=== PATIENT | male | born 1975 | race Caucasian/White ===

== ENCOUNTER 2018-07-18 07:59 | Emergency (ER) | payer MEDICAID, OTHER ==
[~2018-07-18] VITALS: Ht 167.6 cm; Wt 74.8 kg
--- OUTSIDE RECORDS SUMMARY | 2018-07-18 08:09 | XMS REPORT ---
Author Author DONYA ARROYO [facility] Address [address] [address] Phone Unavailable Care Team Providers Care Supervisor [employer] Name Role Phone DONYA ARROYO Unavailable Unavailable PROBLEMS Unknown Problems ALLERGIES Substance Reaction Event Type Date Status codiene Unknown Non Drug Allergy Jul, Active SOCIAL HISTORY No smoking Hx information available PLAN OF CARE Activity Details Follow Up robb Reason:SRP VITAL SIGNS Heart Rate 121 bpm 2016-08-03 Blood pressure systolic 124 mmHg 2016-08-03 Blood pressure diastolic 92 mmHg 2016-08-03 MEDICATIONS Medication Instructions Dosage Frequency Start Date End Date Duration Status BuSpar 15 MG Orally Twice a day 1 tablet 12h Active RESULTS No Results PROCEDURES Procedure Date Ordered Related Diagnosis Body Site COMP ORAL EVALUATION - NEW/EST PT Aug 03, 2016 INTRAORL-PERIAPICAL 1 FILM [id number] Aug 03, 2016 PANORAMIC FILM SEE ALSO CODE [id number] Aug 03, 2016 BITEWINGS - FOUR FILMS Aug 03, 2016 IMMUNIZATIONS No Known Immunizations
[2018-07-18 09:25] LABS: BASOPHILS % (AUTO) 0 % (0-10); EOSINOPHILS # (AUTO) 0.1 10^3/uL (0.0-0.3); EOSINOPHILS % (AUTO) 1 % (0-10); HEMATOCRIT 46 % (40-54); HEMOGLOBIN 15.6 G/DL (13.3-17.7); LYMPHOCYTES % (AUTO) 16 % (12-44); MEAN CORPUSCULAR HEMOGLOBIN 31 PG (25-34); MEAN CORPUSCULAR HGB CONC 34 G/DL (32-36); MEAN CORPUSCULAR VOLUME 93 FL (80-99); MEAN PLATELET VOLUME 9.9 FL (7.4-10.4); MONOCYTES # (AUTO) 1.9 X 10^3 (0.0-1.0); MONOCYTES % (AUTO) 16 % (0-12); NEUTROPHILS % (AUTO) 67 % (42-75); PLATELET COUNT 257 10^3/uL (130-400); RED BLOOD COUNT 4.98 10^6/uL (4.35-5.85); RED CELL DISTRIBUTION WIDTH 13.6 % (10.0-14.5)
[2018-07-18 09:42] LABS: ALANINE AMINOTRANSFERASE 26 U/L (0-55); ALBUMIN 4.4 GM/DL (3.2-4.5); ALKALINE PHOSPHATASE 84 U/L (40-136); BILIRUBIN,TOTAL 0.4 MG/DL (0.1-1.0); BUN/CREATININE RATIO 18; CALCIUM 9.8 MG/DL (8.5-10.1); CARBON DIOXIDE 26 MMOL/L (21-32); CHLORIDE 103 MMOL/L (98-107); CREATININE SERUM 0.83 MG/DL (0.60-1.30); GFR ESTIMATED > 60; GLUCOSE 106 MG/DL (70-105); POTASSIUM 4.5 MMOL/L (3.6-5.0); SODIUM 138 MMOL/L (135-145); TOTAL PROTEIN 7.4 GM/DL (6.4-8.2)
[2018-07-18] MEDS ORDERED: HYDROcodone/APAP 7.5 MG/325 MG (LORTAB, LORCET PLUS) TABLET PO STA (10:14)
[2018-07-18] MEDS ORDERED: KETOROLAC 30 MG/ML VIAL IVP STA (10:14)
[2018-07-18] MEDS ORDERED: DEXAMETHASONE 10 MG/ML (DECADRON) 1 ML VIAL IV ONE (10:15)
[2018-07-18] MEDS ORDERED: cefTRIAXone FOR IV USE 1,000 MG in NS (IVPB) 50 ML IV ONE (10:15)
--- NOTE | 2018-07-18 10:22 | ED EENT ---
History of Present Illness General Chief Complaint: Dental Problems/Pain Stated Complaint: TOOTH PAIN;SWELLING Nursing Triage Note: Pt has dental abcess on top L tooth. Facial swelling noted. Pt reports facial swelling started getting worse last night. Pain x2 days. Source: patient Exam Limitations: no limitations History of Present Illness Date Seen by Provider: Jul 18, 2018 Time Seen by Provider: 10:02 Initial Comments Here with report of left frontal dental pain and abscess with swelling on the face. Moderate facial swelling noted that started getting much worse last night. Pain is been going on for a few days. He has seen the dentist and has had 6 teeth cut out with 6 more cut out. The [facility] as referred him to our clinic in [place] that wants $6000 for the procedure with 80 percent upfront and he does not have the money for that. Denies nausea or vomiting. Denies breathing or swallowing problems. Timing/Duration: gradual Severity: moderate Location: mouth, facial, dental Prearrival Treatment: over the counter meds Associated Symptoms: No cough; facial pain/swelling; No fever, No sore throat; tooth pain; No voice change Allergies and Home Medications Allergies Coded Allergies: aspirin (Unverified Allergy, Unknown, 07/18/18) codeine (Unverified Allergy, Unknown, 07/18/18) Patient Home Medication List Home Medication List Reviewed: Yes Review of Systems Review of Systems Constitutional: see HPI; No chills, No fever Eyes: No Symptoms Reported Ears: No Symptoms Reported Nose: no symptoms reported Mouth: see HPI, pain, swelling; denies purulent discharge Throat: no symptoms reported Respiratory: no symptoms reported Cardiovascular: no symptoms reported Skin: see HPI, change in color, other (redness to the face moderate swelling left side of the face frontal from nose to cheek) Past Jtyjkwx-Oopxma-Tfrqxm Hx Past Med/Social Hx: Reviewed Nursing Past Med/Soc Hx Patient Social History Alcohol Use: Denies Use Recreational Drug Use: No Smoking Status: Current Everyday Smoker Type Used: Cigarettes Recent Foreign Travel: No Contact w/Someone Who Travel: No Recent Infectious Disease Expo: No Recent Hopitalizations: No Immunizations Up To Date Tetanus Booster (TDap): Less than 5yrs Seasonal Allergies Seasonal Allergies: No Past Medical History Surgeries: Yes Orthopedic Respiratory: Yes COPD Cardiac: No Neurological: No Genitourinary: No Gastrointestinal: No Musculoskeletal: No Endocrine: No HEENT: No Cancer: No Psychosocial: No Integumentary: No Blood Disorders: No Family Medical History Reviewed Nursing Family Hx Physical Exam Vital Signs Vital Signs - First Documented 07/18/18 08:25 Temp 97.8 Pulse 109 Resp 18 B/P (MAP) 119/89 (99) Pulse Ox 98 O2 Delivery Room Air Height, Weight, BMI Height: 5'6.00" Weight: 165lbs. oz. [id number]; BMI Method:Stated General Appearance: WD/WN, no apparent distress Nose: normal inspection; No active bleeding Mouth/Throat: pharynx normal, dental tenderness (, left frontal near tooth 9 through 12); No mandibular swelling; maxillary swelling; No pharynx swelling, No trismus, No uvula swelling Neck: full range of motion, supple Cardiovascular: regular rate, rhythm, no murmur Respiratory: lungs clear, normal breath sounds Gastrointestinal: non tender, soft Neurologic/Psychiatric: alert, oriented x 3 Skin: normal color, warm/dry, other (moderate erythema to the face on the left side frontal around area of swelling) Progress/Results/Core Measures Results/Orders Lab Results Laboratory Tests Test 07/18/18 09:10 Range/Units White Blood Count 12.0 H 4.3-11.0 10^3/uL Red Blood Count 4.98 4.35-5.85 10^6/uL Hemoglobin 15.6 13.3-17.7 G/DL Hematocrit 46 40-54 % Mean Corpuscular Volume 93 80-99 FL Mean Corpuscular Hemoglobin 31 25-34 PG Mean Corpuscular Hemoglobin Concent 34 32-36 G/DL Red Cell Distribution Width 13.6 10.0-14.5 % Platelet Count 257 130-400 10^3/uL Mean Platelet Volume 9.9 7.4-10.4 FL Neutrophils (%) (Auto) 67 42-75 % Lymphocytes (%) (Auto) 16 12-44 % Monocytes (%) (Auto) 16 H 0-12 % Eosinophils (%) (Auto) 1 0-10 % Basophils (%) (Auto) 0 0-10 % Neutrophils # (Auto) 8.0 H 1.8-7.8 X 10^3 Lymphocytes # (Auto) 2.0 1.0-4.0 X 10^3 Monocytes # (Auto) 1.9 H 0.0-1.0 X 10^3 Eosinophils # (Auto) 0.1 0.0-0.3 10^3/uL Basophils # (Auto) 0.0 0.0-0.1 10^3/uL Sodium Level 138 135-145 MMOL/L Potassium Level 4.5 3.6-5.0 MMOL/L Chloride Level 103 98-107 MMOL/L Carbon Dioxide Level 26 21-32 MMOL/L Anion Gap 9 5-14 MMOL/L Blood Urea Nitrogen 15 7-18 MG/DL Creatinine 0.83 0.60-1.30 MG/DL Estimat Glomerular Filtration Rate > 60 BUN/Creatinine Ratio 18 Glucose Level 106 H 70-105 MG/DL Calcium Level 9.8 8.5-10.1 MG/DL Corrected Calcium 9.5 8.5-10.1 MG/DL Total Bilirubin 0.4 0.1-1.0 MG/DL Aspartate Amino Transf (AST/SGOT) 25 5-34 U/L Alanine Aminotransferase (ALT/SGPT) 26 0-55 U/L Alkaline Phosphatase 84 40-136 U/L C-Reactive Protein High Sensitivity 4.30 H 0.00-0.50 MG/DL Total Protein 7.4 6.4-8.2 GM/DL Albumin 4.4 3.2-4.5 GM/DL My Orders Orders - NATIVIDAD SILVER MD Cbc With Automated Diff (07/18/18 09:01) Comprehensive Metabolic Panel (07/18/18 09:01) Hs C Reactive Protein (07/18/18 09:01) Saline Lock/Iv-Start (07/18/18 09:01) Hydrocodone/Apap 7.5/325 Tab (Lortab 7. (07/18/18 10:14) Ketorolac Injection (Toradol Injection) (07/18/18 10:14) Rocephin 1g/Ns Iv (07/18/18 10:15) Dexamethasone Injection (Decadron Inject (07/18/18 10:15) Vital Signs/I&O 07/18/18 08:25 Temp 97.8 Pulse 109 Resp 18 B/P (MAP) 119/89 (99) Pulse Ox 98 O2 Delivery Room Air Blood Pressure Mean: 99 Progress Progress Note : Progress Note Seen and evaluated. IV and labs ordered. Due to moderate swelling and location we will go ahead and give Rocephin 1 g IV especially in light of swelling and erythema to the frontal face. The nose and eye. Hydrocodone 7.5 mg by mouth. Toradol 30 mg IV. Labs reviewed and he does have elevation of white count which is another indication for IV antibiotics at least on the first dose. We will continue outpatient antibiotics. Discharged home with return precautions. Patient verbalize understanding instructions and agreement with plan. Departure Impression Primary Impression: Dental abscess Additional Impression: Facial cellulitis Disposition: HOME, SELF-CARE Condition: Improved Departure-Patient Inst. Decision time for Depature: 10:23 Referrals: [facility] Patient Instructions: Cellulitis (Skin Infection), Adult (DC), Tooth Abscess ( DC) Add. Discharge Instructions: All discharge instructions reviewed with patient and/or family. Voiced understanding. Take antibiotics as directed. Follow-up with your DrMerced this week for recheck and further evaluation. Follow-up with a dentist YOBANI. You may take ibuprofen 600 mg every 8 hours as needed for pain as well as prescribed pain medicine. Return for worsening, fever, vomiting, weakness, breathing problems, swallowing problems or other concerns as needed. Scripts Hydrocodone Bit/Acetaminophen (Hydrocodone/Acetaminophen 5/325mg Tablet) 1 Tab Tab 1-2 EACH PO Q6H PRN for PAIN-MODERATE MDD 10, #20 TAB 0 Refills Prov: NATIVIDAD SILVER MD 07/18/18 Clindamycin HCl (Clindamycin HCl) 300 Mg Capsule 300 MG PO Q6H, #28 CAP 0 Refills Prov: NATIVIDAD SILVER MD 07/18/18 NATIVIDAD SILVER MD Jul 18, 2018 10:22
[2018-07-18] MEDS ORDERED: CLIN300C11 PO (10:30)
[2018-07-18] MEDS ORDERED: ACHD5005 PO (10:30)
[2018-07-18 10:52] VITALS: BP 119/89
== END 2018-07-18 10:53 | disposition home or self-care (01) ==
LOC: ER 08:01
DX: K04.7 Periapical abscess without sinus (principal); L03.211 Cellulitis of face; J44.9 Chronic obstructive pulmonary disease, unspecified; F17.210 Nicotine dependence, cigarettes, uncomplicated; Z88.6 Allergy status to analgesic agent; Z88.5 Allergy status to narcotic agent
CPT/HCPCS: 36415; 80053; 85025; 86141; 96365; 96375

== ENCOUNTER 2018-07-20 11:05 | Emergency (ER) | payer MEDICAID ==
[~2018-07-20 11:05] MED LIST: ACHD5005 PO; CLIN300C11 PO
== END 2018-07-20 11:47 | disposition left against medical advice (07) ==
LOC: EDUNIT# 11:05 → ER 11:06
DX: K04.7 Periapical abscess without sinus (principal)

== ENCOUNTER 2019-01-28 22:35 | Emergency (ER) | payer MEDICAID ==
[~2019-01-28] VITALS: Ht 167.6 cm; Wt 70.3 kg
--- OUTSIDE RECORDS SUMMARY | 2019-01-28 22:40 | XMS REPORT | Continuity of Care Document ---
Author Organization Unknown Address Unknown Allergies There is no data. Medications There is no data. Problems There is no data. Procedures There is no data. Results There is no data. Encounters ACCT No. Visit Date/Time Discharge Status Pt. Type Provider Facility Loc./Unit Complaint [id number] 12/02/2018 10:40:00 12/02/2018 23:59:59 CLS Outpatient SELF, CHIRAG Hearn [facility]
--- NOTE | 2019-01-28 22:51 | ED Lower Extremity ---
General Chief Complaint: Lower Extremity Stated Complaint: LT ANKLE PAIN Nursing Triage Note: Patient states he was taking his sock off his left ankle and felt it pop. It began swelling shortly after it popped. Patient states he has had reconstructive surgery on this left ankle in 2013 with post op complications. Nursing Sepsis Screen: No Definite Risk Source: patient, RN notes reviewed Exam Limitations: no limitations History of Present Illness Date Seen by Provider: Jan 28, 2019 Time Seen by Provider: 22:51 Allergies and Home Medications Allergies Coded Allergies: aspirin (Unverified Allergy, Unknown, 07/18/18) codeine (Unverified Allergy, Unknown, 07/18/18) Home Medications Clindamycin HCl 300 Mg Capsule, 300 MG PO Q6H Prescribed by: NATIVIDAD SILVER on 07/18/18 1030 Hydrocodone Bit/Acetaminophen 1 Tab Tab, 1-2 EACH PO Q6H PRN for PAIN-MODERATE Prescribed by: NATIVIDAD SILVER on 07/18/18 1030 Past Aedesyr-Ppvdna-Xmdkxp Hx Patient Social History Alcohol Use: Denies Use Recreational Drug Use: No Smoking Status: Current Everyday Smoker Type Used: Cigarettes Recent Foreign Travel: No Contact w/Someone Who Travel: No Recent Infectious Disease Expo: No Recent Hopitalizations: No Physical Abuse: No Sexual Abuse: No Mistreated: No Fear: No Immunizations Up To Date Tetanus Booster (TDap): Less than 5yrs Seasonal Allergies Seasonal Allergies: No Past Medical History Surgeries: Yes Orthopedic Respiratory: Yes COPD Cardiac: No Neurological: No Genitourinary: No Gastrointestinal: No Musculoskeletal: No Endocrine: No HEENT: No Cancer: No Psychosocial: No Integumentary: No Blood Disorders: No Physical Exam Vital Signs Vital Signs - First Documented 01/28/19 22:37 Temp 98.8 Pulse 111 Resp 18 B/P (MAP) 130/94 (106) Pulse Ox 97 O2 Delivery Room Air Capillary Refill : Less Than 3 Seconds Height, Weight, BMI Height: 5'6.00" Weight: 155lbs. 0oz. 70.266048kc; BMI Method:Stated Progress/Results/Core Measures Results/Orders My Orders Orders - EDI COMBS DO Ankle 3 View Left (01/28/19 22:52) Vital Signs/I&O 01/28/19 22:37 Temp 98.8 Pulse 111 Resp 18 B/P (MAP) 130/94 (106) Pulse Ox 97 O2 Delivery Room Air Blood Pressure Mean: 106 Departure Impression Primary Impression: Left ankle swelling Additional Impression: Previous ORIF left ankle Disposition: 01 HOME, SELF-CARE Condition: Stable Departure-Patient Inst. Decision time for Depature: 23:10 Referrals: SELFCHIRAG MD (PCP/Family) Primary Care Physician Patient Instructions: Ankle Sprain (DC) Add. Discharge Instructions: All discharge instructions reviewed with patient and/or family. Voiced understanding. RECOMMEND 1000 mg OF TYLENOL EVERY 6 HOURS NEEDED FOR ANY PAIN. DO NOT EXCEED 4000 mg OF TYLENOL IN A 24 HOUR PERIOD. RECOMMEND FOLLOW UP WITH AN ORTHOPEDIC SURGEON OF CHOICE. EDI COMBS DO Jan 28, 2019 22:51
[2019-01-28 23:15] VITALS: BP 130/94
--- NOTE | 2019-01-31 14:03 | Diagnostic Imaging Report ---
Indication: Fracture. Three views were obtained. Findings: There has been open reduction and internal fixation of distal tibial fracture with plate and screws. The plafonds and talar dome are intact. Ankle mortise is symmetric. No fracture or dislocation. Soft tissues are unremarkable. Impression: Stable postsurgical changes in the distal fibula otherwise unremarkable. Dictated by: Dictated on workstation # [id number]
== END 2019-01-28 23:15 | disposition home or self-care (01) ==
LOC: EDUNIT# 22:35 → ER FS 22:37
DX: M25.472 Effusion, left ankle (principal); J44.9 Chronic obstructive pulmonary disease, unspecified; F17.210 Nicotine dependence, cigarettes, uncomplicated; Z88.6 Allergy status to analgesic agent; Z88.5 Allergy status to narcotic agent; Z87.81 Personal history of (healed) traumatic fracture; X50.1XXA Overexertion from prolonged static or awkward postures, initial encounter

== ENCOUNTER 2019-05-15 15:52 | Emergency (ER) | payer MEDICAID ==
[~2019-05-15] VITALS: Ht 167 cm; Wt 75.0 kg
[2019-05-15] MEDS ORDERED: NS 100 ML (IVPB) BAG IV ONE (16:15)
[2019-05-15] MEDS ORDERED: CATHETER FLUSH 10 ML SYR IV PRN (16:15)
[2019-05-15] MEDS ORDERED: IOHEXOL 350 MG/ML 100 ML (OMNIPAQUE 350) VIAL IV ONE (16:15)
[2019-05-15] MEDS ORDERED: KETOROLAC 30 MG/ML VIAL IVP ONE (16:15)
[2019-05-15] MEDS ORDERED: HOLD METFORMIN - RECEIVED CONTRAST 20 ML VIAL IV SCH (16:15)
[2019-05-15] MEDS ORDERED: NS IV 1000 ML 1,000 ML IV SCH (16:15)
--- NOTE | 2019-05-15 16:16 | ED Abdominal Pain ---
General Stated Complaint: FLANK PAIN Source of Information: Patient Exam Limitations: No Limitations History of Present Illness Date Seen by Provider: May 15, 2019 Time Seen by Provider: 16:00 Initial Comments The patient is a 44-year-old male presents for evaluation of left lower quadrant abdominal pain. He arrives via EMS. He states it started earlier today. He denies fevers or chills, urinary complaints, back or flank pain, chest pain or shortness of breath, rectal pain or bleeding, nausea or vomiting. He is alert and oriented 4, calm, and appears to be in no distress. He denies having a similar pain previously. Allergies and Home Medications Allergies Coded Allergies: aspirin (Unverified Allergy, Unknown, 07/18/18) codeine (Unverified Allergy, Unknown, 07/18/18) Home Medications Clindamycin HCl 300 Mg Capsule, 300 MG PO Q6H Prescribed by: NATIVIDAD SILVER on 07/18/18 1030 Hydrocodone Bit/Acetaminophen 1 Tab Tab, 1-2 EACH PO Q6H PRN for PAIN-MODERATE Prescribed by: NATIVIDAD SILVER on 07/18/18 1030 Patient Home Medication List Home Medication List Reviewed: Yes Review of Systems Review of Systems Constitutional: no symptoms reported EENTM: No Symptoms Reported Respiratory: No Symptoms Reported Cardiovascular: No Symptoms Reported Gastrointestinal: Abdominal Pain Genitourinary: No Symptoms Reported Musculoskeletal: no symptoms reported Skin: no symptoms reported Psychiatric/Neurological: No Symptoms Reported Endocrine: No Symptoms Reported Hematologic/Lymphatic: No Symptoms Reported All Other Systems Reviewed Negative Unless Noted: Yes Past Ehgeben-Ysbllr-Aoykkx Hx Past Med/Social Hx: Reviewed Nursing Past Med/Soc Hx Patient Social History Type Used: Cigarettes Recent Foreign Travel: No Contact w/Someone Who Travel: No Recent Hopitalizations: No Immunizations Up To Date Tetanus Booster (TDap): Less than 5yrs Seasonal Allergies Seasonal Allergies: No Past Medical History Surgeries: Yes Orthopedic Respiratory: Yes COPD Cardiac: No Neurological: No Genitourinary: No Gastrointestinal: No Musculoskeletal: No Endocrine: No HEENT: No Cancer: No Psychosocial: No Integumentary: No Blood Disorders: No Physical Exam Vital Signs Vital Signs - First Documented 05/15/19 15:55 Temp 36.4 Pulse 67 Resp 22 B/P (MAP) 179/108 (131) Pulse Ox 98 Capillary Refill : Height/Weight/BMI Height: 5'6.00" Weight: 155lbs. 0oz. 70.728493ua; BMI Method:Stated General Appearance: WD/WN, no apparent distress HEENT: PERRL/EOMI, pharynx normal Neck: non-tender, full range of motion, supple, normal inspection Respiratory: chest non-tender, lungs clear, normal breath sounds, no respiratory distress, no accessory muscle use Cardiovascular: regular rate, rhythm, no edema, no JVD Gastrointestinal: normal bowel sounds, non tender, soft Extremities: normal range of motion, no pedal edema Neurologic/Psychiatric: four slide operator II-XII nml as tested, no motor/sensory deficits, alert, normal mood/affect, oriented x 3 Skin: normal color, warm/dry Progress/Results/Core Measures Results/Orders Lab Results Laboratory Tests Test 05/15/19 16:20 05/15/19 17:17 Range/Units White Blood Count 11.8 H 4.3-11.0 10^3/uL Red Blood Count 4.45 4.35-5.85 10^6/uL Hemoglobin 13.9 13.3-17.7 G/DL Hematocrit 42 40-54 % Mean Corpuscular Volume 95 80-99 FL Mean Corpuscular Hemoglobin 31 25-34 PG Mean Corpuscular Hemoglobin Concent 33 32-36 G/DL Red Cell Distribution Width 13.4 10.0-14.5 % Platelet Count 303 130-400 10^3/uL Mean Platelet Volume 9.3 7.4-10.4 FL Neutrophils (%) (Auto) 66 42-75 % Lymphocytes (%) (Auto) 23 12-44 % Monocytes (%) (Auto) 9 0-12 % Eosinophils (%) (Auto) 1 0-10 % Basophils (%) (Auto) 1 0-10 % Neutrophils # (Auto) 7.8 1.8-7.8 X 10^3 Lymphocytes # (Auto) 2.8 1.0-4.0 X 10^3 Monocytes # (Auto) 1.0 0.0-1.0 X 10^3 Eosinophils # (Auto) 0.2 0.0-0.3 10^3/uL Basophils # (Auto) 0.1 0.0-0.1 10^3/uL Sodium Level 143 135-145 MMOL/L Potassium Level 4.3 3.6-5.0 MMOL/L Chloride Level 106 98-107 MMOL/L Carbon Dioxide Level 27 21-32 MMOL/L Anion Gap 10 5-14 MMOL/L Blood Urea Nitrogen 18 7-18 MG/DL Creatinine 1.01 0.60-1.30 MG/DL Estimat Glomerular Filtration Rate > 60 BUN/Creatinine Ratio 18 Glucose Level 111 H 70-105 MG/DL Calcium Level 9.4 8.5-10.1 MG/DL Corrected Calcium 9.3 8.5-10.1 MG/DL Total Bilirubin 0.2 0.1-1.0 MG/DL Aspartate Amino Transf (AST/SGOT) 17 5-34 U/L Alanine Aminotransferase (ALT/SGPT) 11 0-55 U/L Alkaline Phosphatase 73 40-136 U/L Total Protein 6.7 6.4-8.2 GM/DL Albumin 4.1 3.2-4.5 GM/DL Amylase Level 82 25-125 U/L Lipase 65 8-78 U/L Serum Alcohol < 10 <10 MG/DL Urine Color YELLOW Urine Clarity CLEAR Urine pH 7.0 5-9 Urine Specific [place] 1.015 L 1.016-1.022 Urine Protein NEGATIVE NEGATIVE Urine Glucose (UA) NEGATIVE NEGATIVE Urine Ketones NEGATIVE NEGATIVE Urine Nitrite NEGATIVE NEGATIVE Urine Bilirubin NEGATIVE NEGATIVE Urine Urobilinogen 0.2 NORMAL MG/DL Urine Leukocyte Esterase NEGATIVE NEGATIVE Urine RBC (Auto) 1+ H NEGATIVE Urine RBC 10-25 H /HPF Urine WBC 0-2 /HPF Urine Squamous Epithelial Cells 0-2 /HPF Urine Crystals NONE /LPF Urine Bacteria NEGATIVE /HPF Urine Casts NONE /LPF Urine Mucus NEGATIVE /LPF Urine Culture Indicated NO My Orders Orders - SPEEDY MARCIAL DO Comprehensive Metabolic Panel (05/15/19 16:02) Lipase (05/15/19 16:02) Amylase (05/15/19 16:02) Ua Culture If Indicated (05/15/19 16:02) Ed Iv/Invasive Line Start (05/15/19 16:02) Cbc With Automated Diff (05/15/19 16:02) Ct Abdomen/Pelvis W (05/15/19 16:02) Ns Iv 1000 Ml (Sodium Chloride 0.9%) (05/15/19 16:15) Alcohol (05/15/19 16:02) Ketorolac Injection (Toradol Injection) (05/15/19 16:15) Iohexol Injection (Omnipaque 350 Mg/Ml 1 (05/15/19 16:15) Received Contrast (Hold Metformin- Contr (05/15/19 16:15) Sodium Chloride Flush (Catheter Flush Sy (05/15/19 16:15) Ns (Ivpb) (Sodium Chloride 0.9% Ivpb Bag (05/15/19 16:15) Morphine Injection (Morphine Injection (05/15/19 17:15) Medications Given in ED Current Medications Medications Dose Ordered Sig/Anatoly Route Start Time Stop Time Status Last Admin Dose Admin Iohexol 100 ml ONCE ONCE IV 05/15/19 16:15 05/15/19 16:16 DC 05/15/19 17:17 100 ML Ketorolac Tromethamine 30 mg ONCE ONCE IVP 05/15/19 16:15 05/15/19 16:16 DC 05/15/19 16:24 30 MG Sodium Chloride 10 ml NEEDED PRN IV 05/15/19 16:15 05/15/19 17:17 10 ML Sodium Chloride 100 ml ONCE ONCE IV 05/15/19 16:15 05/15/19 16:16 DC 05/15/19 17:17 80 ML Vital Signs/I&O 05/15/19 15:55 Temp 36.4 Pulse 67 Resp 22 B/P (MAP) 179/108 (131) Pulse Ox 98 Progress Progress Note : Progress Note @1740 - Pt has a possible urologic mass and will need to f/u with urology. Dr. Mora called and voicemail left. @1752 - Patient updated on all lab and imaging results. Case was discussed with Dr. Mora. Dr. Mora will like the patient to contact his office tomorrow to be seen and states that he will perform a cystoscopy to make sure this is not a concerning lesion. The patient expresses verbal understanding and agreement with this plan. He will go home with pain medication as well as nausea medication. He states he is feeling better but is still having some mild discomfort. No indication for admission at this time. Consults : Consults Notes [facility]. [place], [place] NAME: LISANDRO ROA MED REC#: [id number] PT STATUS: REG ER : 1975 PHYSICIAN: SPEEDY MARCIAL DO ADMIT DATE: 05/15/19/ER FS Draft Date of Exam:05/15/19 CT ABDOMEN/PELVIS W PROCEDURE: CT abdomen and pelvis with contrast. TECHNIQUE: Multiple contiguous axial images were obtained through the abdomen and pelvis after administration of intravenous contrast. Auto Exposure Controls were utilized during the CT exam to meet ALARA standards for radiation dose reduction. DATE: May 15, 2019. COMPARISON: None. INDICATION: 44-year-old male, left-sided abdominal pain. FINDINGS: The visualized portions of the lung bases are clear. The heart is not enlarged. There is no identified pericardial effusion. The liver is normal in size and contour. There is no identified liver lesion. The gallbladder is unremarkable. There is no intrahepatic or extrahepatic bile duct dilation. The main pancreatic duct is not abnormally dilated. Unremarkable appearance of the pancreatic parenchyma. The spleen is normal in size. The adrenal glands are unremarkable. There is a 5 mm low-attenuation lesion in the right kidney on axial image 26 which measures 5 mm in size. This is too small to characterize. There is a stone in the region of the left ureterovesical junction which is projecting within the urinary bladder on axial image 76. There is abnormal soft tissue prominence in this region perhaps best illustrated on delayed axial image 77 and adjacent sequential images. This does question potentially neoplastic process at this level. There is mild left hydroureteronephrosis. The right urinary collecting system is not abnormally dilated. There is no right renal or ureteral stone. There is asymmetric clearance of contrast from the renal parenchyma with the delay on the left. There is mild wall thickening of the rectum and distal sigmoid. There is diverticulosis without evidence of acute diverticulitis. The appendix is normal. There is moderate distention of the stomach. The additional segments of the intestinal tract are not distended. There is no free intraperitoneal air. There is no drainable fluid collection. There is no free pelvic fluid. There are atherosclerotic calcifications. There is no identified abnormally enlarged lymph node in the abdomen or pelvis which meets CT size criteria for adenopathy. There are mild degenerative changes of the spine. IMPRESSION: CT ABDOMEN AND PELVIS. 1. The stone in the region of the left ureterovesical junction which is projecting within the urinary bladder lumen. There is abnormal soft tissue attenuation in the region of the ureterovesical junction which does raise concern for potential neoplasm at this site. Further evaluation with cystoscopy is recommended. There is mild left hydroureteronephrosis as well as delay in clearance of contrast from the left kidney compared to the right. 2. Abnormal wall thickening at the level of the rectosigmoid colon. 3. Moderate distention of the stomach. Dictated on workstation # [id number] Dict: 05/15/19 1719 Trans: 05/15/19 173 [facility] [id number] Interpreted by: VIRGILIO CAO MD Electronically signed by: Departure Impression Primary Impression: Ureteral calculus, left Additional Impression: Abnormal CT scan, bladder Disposition: 01 HOME, SELF-CARE Condition: Stable Departure-Patient Inst. Decision time for Depature: 17:55 Referrals: YULIANA MORA MD Patient Instructions: Kidney Stones (DC) Add. Discharge Instructions: It is very important that you follow up with Dr. Mora in his office tomorrow as he will be expecting you. He is planning to perform a cystoscopy where he looks inside your bladder to make sure there is no concerning lesion. Take the prescribed medications as directed, as needed. Return to the emergency Department immediately for new or worsening symptoms. Scripts Ondansetron (Ondansetron Odt) 4 Mg Tab.rapdis 4 MG PO Q6H, #20 TAB Prov: SPEEDY MARCIAL DO 05/15/19 Tamsulosin HCl (Flomax) 0.4 Mg Cap 0.4 MG PO DAILY for 5 Days, #5 CAP Prov: SPEEDY MARCIAL DO 05/15/19 Hydrocodone/Acetaminophen (Clare 7.5-325 Tablet) 1 Each Tablet 1 TAB PO Q4H for PAIN-MODERATE MDD 6 TABS for 7 Days, #20 TAB Prov: SPEEDY MARCIAL DO 05/15/19 SPEEDY MARCIAL DO May 15, 2019 16:16
[2019-05-15 16:40] LABS: BASOPHILS # (AUTO) 0.1 10^3/uL (0.0-0.1); BASOPHILS % (AUTO) 1 % (0-10); EOSINOPHILS # (AUTO) 0.2 10^3/uL (0.0-0.3); EOSINOPHILS % (AUTO) 1 % (0-10); HEMATOCRIT 42 % (40-54); HEMOGLOBIN 13.9 G/DL (13.3-17.7); LYMPHOCYTES # (AUTO) 2.8 X 10^3 (1.0-4.0); LYMPHOCYTES % (AUTO) 23 % (12-44); MEAN CORPUSCULAR HEMOGLOBIN 31 PG (25-34); MEAN CORPUSCULAR HGB CONC 33 G/DL (32-36); MEAN CORPUSCULAR VOLUME 95 FL (80-99); MEAN PLATELET VOLUME 9.3 FL (7.4-10.4); MONOCYTES % (AUTO) 9 % (0-12); NEUTROPHILS # (AUTO) 7.8 X 10^3 (1.8-7.8); NEUTROPHILS % (AUTO) 66 % (42-75); PLATELET COUNT 303 10^3/uL (130-400); RED CELL DISTRIBUTION WIDTH 13.4 % (10.0-14.5); WHITE BLOOD COUNT 11.8 10^3/uL (4.3-11.0)
[2019-05-15 16:53] LABS: SODIUM 143 MMOL/L (135-145)
[2019-05-15 16:54] LABS: ALANINE AMINOTRANSFERASE 11 U/L (0-55); ALBUMIN 4.1 GM/DL (3.2-4.5); ALKALINE PHOSPHATASE 73 U/L (40-136); BILIRUBIN,TOTAL 0.2 MG/DL (0.1-1.0); BUN/CREATININE RATIO 18; CALCIUM 9.4 MG/DL (8.5-10.1); CARBON DIOXIDE 27 MMOL/L (21-32); CHLORIDE 106 MMOL/L (98-107); CREATININE SERUM 1.01 MG/DL (0.60-1.30); GFR ESTIMATED > 60; GLUCOSE 111 MG/DL (70-105); POTASSIUM 4.3 MMOL/L (3.6-5.0); TOTAL PROTEIN 6.7 GM/DL (6.4-8.2)
[2019-05-15 16:55] LABS: AMYLASE 82 U/L (25-125); LIPASE 65 U/L (8-78)
[2019-05-15] MEDS ORDERED: morphine INJ 10 MG/ML 1ML (SYR OR VIAL) IVP STA (17:15)
[2019-05-15 17:29] LABS: BACTERIA,URINE NEGATIVE /HPF; BILIRUBIN,URINE NEGATIVE (NEGATIVE); CLARITY,URINE CLEAR; COLOR,URINE YELLOW; GLUCOSE, URINE (UA) NEGATIVE (NEGATIVE); KETONES,URINE NEGATIVE (NEGATIVE); LEUKOCYTE ESTERASE ,URINE NEGATIVE (NEGATIVE); NITRITE,URINE NEGATIVE (NEGATIVE); PROTEIN,URINE NEGATIVE (NEGATIVE); SQUAMOUS EPITHELIAL CELL,UR 0-2 /HPF; UROBILINOGEN,URINE 0.2 MG/DL (NORMAL); WBC,URINE 0-2 /HPF
--- NOTE | 2019-05-15 17:33 | Diagnostic Imaging Report ---
PROCEDURE: CT abdomen and pelvis with contrast. TECHNIQUE: Multiple contiguous axial images were obtained through the abdomen and pelvis after administration of intravenous contrast. Auto Exposure Controls were utilized during the CT exam to meet ALARA standards for radiation dose reduction. DATE: May 15, 2019. COMPARISON: None. INDICATION: 44-year-old male, left-sided abdominal pain. FINDINGS: The visualized portions of the lung bases are clear. The heart is not enlarged. There is no identified pericardial effusion. The liver is normal in size and contour. There is no identified liver lesion. The gallbladder is unremarkable. There is no intrahepatic or extrahepatic bile duct dilation. The main pancreatic duct is not abnormally dilated. Unremarkable appearance of the pancreatic parenchyma. The spleen is normal in size. The adrenal glands are unremarkable. There is a 5 mm low-attenuation lesion in the right kidney on axial image 26 which measures 5 mm in size. This is too small to characterize. There is a stone in the region of the left ureterovesical junction which is projecting within the urinary bladder on axial image 76. There is abnormal soft tissue prominence in this region perhaps best illustrated on delayed axial image 77 and adjacent sequential images. This does question potentially neoplastic process at this level. There is mild left hydroureteronephrosis. The right urinary collecting system is not abnormally dilated. There is no right renal or ureteral stone. There is asymmetric clearance of contrast from the renal parenchyma with the delay on the left. There is mild wall thickening of the rectum and distal sigmoid. There is diverticulosis without evidence of acute diverticulitis. The appendix is normal. There is moderate distention of the stomach. The additional segments of the intestinal tract are not distended. There is no free intraperitoneal air. There is no drainable fluid collection. There is no free pelvic fluid. There are atherosclerotic calcifications. There is no identified abnormally enlarged lymph node in the abdomen or pelvis which meets CT size criteria for adenopathy. There are mild degenerative changes of the spine. IMPRESSION: CT ABDOMEN AND PELVIS. 1. Stone in the region of the left ureterovesical junction which is projecting within the urinary bladder lumen. There is abnormal soft tissue attenuation in the region of the ureterovesical junction which does raise concern for potential neoplasm at this site. Further evaluation with cystoscopy is recommended. There is mild left hydroureteronephrosis as well as delay in clearance of contrast from the left kidney compared to the right. 2. Abnormal wall thickening at the level of the rectosigmoid colon. 3. Moderate distention of the stomach. Dictated by: Dictated on workstation # [id number]
[2019-05-15] MEDS ORDERED: ONDA4TAB11 PO (17:59)
[2019-05-15] MEDS ORDERED: HYDR-4227 PO (17:59)
[2019-05-15] MEDS ORDERED: TAMS0.4C98 PO (17:59)
[2019-05-15 18:13] VITALS: BP 160/100
== END 2019-05-15 18:15 | disposition home or self-care (01) ==
LOC: EDUNIT# 15:52 → ER FS 15:53
DX: N13.2 Hydronephrosis with renal and ureteral calculous obstruction (principal); R93.41 Abnormal radiologic findings on diagnostic imaging of renal pelvis, ureter, or bladder; J44.9 Chronic obstructive pulmonary disease, unspecified; Z88.6 Allergy status to analgesic agent; Z88.5 Allergy status to narcotic agent
CPT/HCPCS: 36415; 74177; 80053; 80320; 81000; 82150; 83690; 85025; 96361; 96374; 96375

== ENCOUNTER → 2019-05-19 | Outpatient (CLI) | payer MEDICAID ==
[~2019-05-19] MED LIST changes: +HYDR-4227 PO; +ONDA4TAB11 PO; +TAMS0.4C98 PO
--- NOTE | 2019-05-19 15:57 | Diagnostic Imaging Report ---
INDICATION: Left lower quadrant abdominal pain. EXAMINATION: KUB at 2:50 PM. FINDINGS: The lung bases are clear. The bowel gas pattern is normal. There is a moderate amount of stool in the ascending colon. There may be a tiny calculus projecting over the left kidney. IMPRESSION: Questionable left nephrolithiasis. Dictated by: Dictated on workstation # [id number]
== END ==
LOC: RAD 14:28
PROVIDERS: ATTEND Urology
DX: R10.32 Left lower quadrant pain (principal)
CPT/HCPCS: 74018

== ENCOUNTER 2019-05-26 05:59 | Outpatient (CLI) | payer MEDICAID ==
[~2019-05-26] VITALS: Ht 167 cm; Wt 75.0 kg
[~2019-05-26 05:59] MED LIST changes: -TAMS0.4C98 PO; +TMSL.4C PO
[2019-05-26] MEDS ORDERED: VENL150C PO (12:27)
== END 2019-05-26 13:49 | disposition home or self-care (01) ==
LOC: PREOP 05:59
PROVIDERS: ATTEND Urology
DX: Z01.818 Encounter for other preprocedural examination (principal)

== ENCOUNTER 2019-05-27 06:25 | Day surgery (SDC) | payer MEDICAID ==
[2019-05-27] VITALS (9 sets, daily range): BP systolic 105–130; BP diastolic 72–91
[~2019-05-27] VITALS: Ht 167 cm; Wt 75.0 kg
[~2019-05-27 06:25] MED LIST changes: +TAMS0.4C98 PO; -TMSL.4C PO; +VENL150C PO
[2019-05-27] MEDS ORDERED: LACTATED RINGERS 1,000 ML IV PRN (06:32)
[2019-05-27] MEDS ORDERED: cefTRIAXone FOR IV USE 1,000 MG in WATER (STERILE) FOR INJECTION 10 ML IV ONE (06:45)
[2019-05-27] MEDS ORDERED: CATHETER FLUSH 10 ML SYR IV PRN (07:00)
[2019-05-27] MEDS ORDERED: DEXAMETHASONE 10 MG/ML (DECADRON) 1 ML VIAL ONE (07:04)
[2019-05-27] MEDS ORDERED: MIDAZOLAM 2 MG/2 ML (VERSED) VIAL ONE (07:04)
[2019-05-27] MEDS ORDERED: ONDANSETRON 4 MG/2 ML (SDV) Z0FRAN ONE (07:04)
[2019-05-27] MEDS ORDERED: LIDOCAINE PF 2% 5 ML (XYLOCAINE) VIAL ONE (07:04)
[2019-05-27] MEDS ORDERED: FUROSEMIDE 40 MG/4 ML INJ (LASIX) ONE (07:04)
[2019-05-27] MEDS ORDERED: SEVOFLURANE (ULTANE) 15 ML INHAL SOLN ONE ×3 (07:04→08:27)
[2019-05-27] MEDS ORDERED: fentaNYL INJECTION 100 MCG/2 ML AMP ONE ×2 (07:04→08:23)
[2019-05-27] MEDS ORDERED: proPOfol 200 MG/20 ML (DIPRIVAN) VIAL IV ONE (07:04)
[2019-05-27] MEDS ORDERED: KETOROLAC 30 MG/ML VIAL ONE (07:04)
[2019-05-27] MEDS ORDERED: ROCURONIUM 10 MG/ML 5 ML SYRINGE IV ONE (07:09)
--- NOTE | 2019-05-27 07:11 | Progress Note-Pre Operative ---
Pre-Operative Progress Note H&P Reviewed The H&P was reviewed, patient examined and no changes noted. Date Seen by Provider: May 27, 2019 Time Seen by Provider: 07:10 Date H&P Reviewed: May 27, 2019 Time H&P Reviewed: 07:10 Pre-Operative Diagnosis: LT DISTAL URETERAL STONE YULIANA MORA MD May 27, 2019 07:11
[2019-05-27] MEDS ORDERED: GLYCOPYRROLATE 0.2 MG/ML (ROBINUL) 2 ML VIAL ONE (08:26)
[2019-05-27] MEDS ORDERED: NEOSTIGMINE 3 MG/3 ML VIAL ONE (08:26)
--- NOTE | 2019-05-27 08:32 | Progress Note-Post Operative ---
Post-Operative Progess Note Surgeon (s)/Trumpet Player (s) Surgeon YULIANA MORA MD Trumpet Player: NONE Pre-Operative Diagnosis LT DISTAL URETERAL STONE Post-Operative Diagnosis SAME Procedure & Operative Findings Date of Procedure 05/27/19 Procedure Performed/Findings LT URETEROSCOPY WITH RETROGRADE UROGRAM Anesthesia Type GENERAL Estimated Blood Loss Estimated blood loss (mL): NONE Specimens/Packing Specimens Removed NONE Packing: NONE YULIANA MORA MD May 27, 2019 08:32
--- NOTE | 2019-05-27 08:32 | Diagnostic Imaging Report ---
EXAMINATION: Abdominal radiographs, single supine view. DATE: May 27, 2019. CLINICAL INDICATION: 44-year-old male, left ureteral stone. COMPARISON: May 19, 2019. CT abdomen and pelvis May 15, 2019. COMMENTS: The upper abdomen is not entirely in the included field of view of imaging. The previously noted stone measuring 2 mm in size in the region of the left ureterovesical junction on prior CT exam of May 15, 2019 is not well seen radiographically although this could relate to differences in sensitivity between the 2 exams. There are gas filled segments of small and large bowel which are not grossly distended. There is an abnormal amount of small bowel gas. IMPRESSION: 1. Previously noted stone in the region of the left ureterovesical junction on prior CT imaging is not well radiographically visualized. 2. Abnormal but nonspecific bowel gas pattern. Dictated by: Dictated on workstation # [id number]
--- NOTE | 2019-05-27 08:33 | Discharge Inst-Urology ---
Discharge Inst-Urology Reconcile Patient Problems Problems Reviewed?: Yes Final Diagnosis LT URETERAL STONE (PASSED) Patient Instructions/Follow Up Plan/Assessment/Instructions Please make appointment to been seen in office in 4 weeks. Increase oral fluids for 48 hours and then as needed. Diet and Activity as tolerated. If questions or concerns contact your physician Or seek help at emergency department. YULIANA MORA MD May 27, 2019 08:33
[2019-05-27] MEDS ORDERED: ONDANSETRON 4 MG/2 ML (SDV) Z0FRAN IVP PRN (08:45)
[2019-05-27] MEDS ORDERED: morphine INJ 10 MG/ML 1ML (SYR OR VIAL) IVP ONE (08:45)
--- NOTE | 2019-05-27 10:50 | Anesthesia-General Post-Op ---
General Patient Condition Mental Status/LOC: Same as Preop Cardiovascular: Satisfactory Nausea/Vomiting: Absent Respiratory: Satisfactory Pain: Controlled Complications: Absent Post Op Complications Complications None Follow Up Care/Instructions Patient Instructions None needed. Anesthesia/Patient Condition Patient Condition Patient is doing well, no complaints, stable vital signs, no apparent adverse anesthesia problems. No complications reported per nursing. MARIA FERNANDA DE CRNA May 27, 2019 10:50
--- NOTE | 2019-05-27 18:20 | Diagnostic Imaging Report ---
INDICATION: Possible lithotripsy and stone. FINDINGS: Fluoroscopy was provided in the OR during a left-sided retrograde pyelogram. Images demonstrate cannulation of the distal left ureteral orifice and injection of contrast. No definite filling defects are identified in the mid and distal left ureter to suggest stone. 24 seconds of fluoroscopic time was utilized. IMPRESSION: Left retrograde pyelogram. No definite filling defects are seen. Dictated by: Dictated on workstation # [id number]
--- NOTE | 2019-05-27 22:09 | OPERATIVE REPORT ---
DATE OF SERVICE: 05/27/2019 PREOPERATIVE DIAGNOSIS: Left distal ureteral stone. POSTOPERATIVE DIAGNOSIS: Left distal ureteral stone, passed. OPERATION PERFORMED: Cystoscopy, left ureteroscopy with left retrograde urogram. SURGEON: Jerrell Mora MD ANESTHESIA: General. COMPLICATIONS: None. DESCRIPTION OF PROCEDURE: Under satisfactory general anesthesia, the patient in lithotomy position, genitalia were prepped and draped in the usual sterile fashion. Cystoscope was introduced under vision. The anterior urethra was normal. The prostate was nonobstructing. The bladder neck was open. The bladder was inspected. There was no bladder tumor. No abnormality, no stone. Normal left ureteral orifice intramural portion with clear efflux equal bilateral. Using the foroblique lens, I dilated the left ureteral portion, intramural portion easily to accommodate a 6.9 Telugu semi-rigid ureteroscope. There were no stones up to the mid ureter, back down again, injected contrast. There was no filling defect and good emptying of the system on withdrawing the ureteroscope. I reinserted the cystoscope to empty the bladder. The patient tolerated the procedure and anesthesia well and was sent to recovery room in stable condition. Job ID: [id number] DocumentID: [id number] Dictated Date: 05/27/2019 08:37:15 Supervisor Shipping Room Date: 05/27/2019 15:03:22 Dictated By: JERRELL MORA MD
== END 2019-05-27 10:10 | disposition home or self-care (01) ==
LOC: SDC 06:25
PROVIDERS: ATTEND Urology
DX: N20.1 Calculus of ureter (principal); F32.9 Major depressive disorder, single episode, unspecified; Z88.6 Allergy status to analgesic agent; Z88.5 Allergy status to narcotic agent; Z79.891 Long term (current) use of opiate analgesic; Z79.899 Other long term (current) drug therapy; Z87.891 Personal history of nicotine dependence
CPT/HCPCS: 74018; 87081

== ENCOUNTER 2019-09-15 11:43 | Emergency (ER) | payer SELFPAY ==
[~2019-09-15] VITALS: Ht 167 cm; Wt 70.9 kg
[~2019-09-15 11:43] MED LIST changes: -TAMS0.4C98 PO; +TMSL.4C PO
--- NOTE | 2019-09-15 11:54 | ED Chest Pain ---
General Stated Complaint: CHEST PAIN Source: patient Exam Limitations: no limitations History of Present Illness Date Seen by Provider: Sep 15, 2019 Time Seen by Provider: 11:52 Initial Comments 44-year-old male presents with some chest discomfort, diaphoresis, nausea vomiting. Patient reports that last night he started feeling rough got Sweaty nausea vomiting little discomfort in his chest around 9 PM. Went away after he went to bed. This morning he got up and was better and then had a similar episode. Reports that he still has a little bit of chest discomfort on the left side of his chest. Little bit nauseated. He reports a mild cough. No diarrhea, abdominal pain. The pain does not move. Allergies and Home Medications Allergies Coded Allergies: aspirin (Unverified Allergy, Unknown, 07/18/18) codeine (Unverified Allergy, Unknown, 07/18/18) Home Medications Hydrocodone/Acetaminophen 1 Each Tablet, 1 TAB PO Q4H Prescribed by: SPEEDY MARCIAL on 05/15/191758 Ondansetron 4 Mg Tab.rapdis, 4 MG PO Q6H Prescribed by: SPEEDY MARCIAL on 05/15/191758 Tamsulosin HCl 0.4 Mg Cap, 0.4 MG PO DAILY Prescribed by: SPEEDY MARCIAL on 05/15/191758 Venlafaxine HCl 150 Mg Cap.er.24h, 150 MG PO DAILY, (Reported) Patient Home Medication List Home Medication List Reviewed: Yes Review of Systems Review of Systems Constitutional: diaphoresis; No dizziness; malaise Respiratory: Cough Cardiovascular: Chest Pain Gastrointestinal: Nausea, Vomiting Genitourinary: No Symptoms Reported Musculoskeletal: no symptoms reported Skin: no symptoms reported Psychiatric/Neurological: Anxiety Endocrine: No Symptoms Reported Past Hlresev-Mxwepo-Yxevvd Hx Past Med/Social Hx: Reviewed Nursing Past Med/Soc Hx Patient Social History Drug of Choice: marijuana Type Used: Cigarettes 2nd Hand Smoke Exposure: Yes Recent Foreign Travel: No Recent Hopitalizations: No Immunizations Up To Date Tetanus Booster (TDap): Less than 5yrs PED Vaccines UTD: No Seasonal Allergies Seasonal Allergies: No Past Medical History Surgeries: Yes (ANKLE FX, R KNEE, HAND, TESTICLE TORSION ) Orthopedic, Tonsillectomy Respiratory: No COPD Currently Using CPAP: No Currently Using BIPAP: No Cardiac: No Neurological: No Sexually Transmitted Disease: No HIV/AIDS: No Genitourinary: Yes Kidney Stones Gastrointestinal: Yes (HX RELFLUX) Gastroesophageal Reflux, Hepatitis Musculoskeletal: Yes Arthritis, Chronic Back Pain Endocrine: No HEENT: No Loss of Vision: Denies Hearing Impairment: Denies Cancer: No Psychosocial: Yes Anxiety, Depression Integumentary: No Blood Disorders: No Adverse Reaction/Blood Tranf: No (HAD HAD BLOOD WITH NO REACTION) Physical Exam Vital Signs Vital Signs - First Documented 09/15/19 11:56 Temp 36.5 Pulse 88 Resp 16 B/P (MAP) 164/94 (117) Pulse Ox 99 Capillary Refill : Height, Weight, BMI Height: 5'6.00" Weight: 155lbs. 0oz. 70.618094bc; 26.89 BMI Method:Stated General Appearance: No Apparent Distress HEENT: Normal ENT Inspection Neck: Non Tender Respiratory: Lungs Clear, Normal Breath Sounds Cardiovascular: Regular Rate, Rhythm, No Edema Gastrointestinal: Non Tender, Soft Extremity: Normal Capillary Refill, Normal Inspection Neurologic/Psychiatric: Alert, Oriented x3, No Motor/Sensory Deficits, Normal Mood/Affect, machine container washer II-XII Norm as Tested Skin: Normal Color, Warm/Dry Progress/Results/Core Measures Results/Orders Lab Results Laboratory Tests Test 09/15/19 11:52 09/15/19 14:13 Range/Units White Blood Count 7.8 4.3-11.0 10^3/uL Red Blood Count 5.05 4.35-5.85 10^6/uL Hemoglobin 15.4 13.3-17.7 G/DL Hematocrit 47 40-54 % Mean Corpuscular Volume 93 80-99 FL Mean Corpuscular Hemoglobin 31 25-34 PG Mean Corpuscular Hemoglobin Concent 33 32-36 G/DL Red Cell Distribution Width 13.2 10.0-14.5 % Platelet Count 283 130-400 10^3/uL Mean Platelet Volume 9.5 7.4-10.4 FL Neutrophils (%) (Auto) 57 42-75 % Lymphocytes (%) (Auto) 31 12-44 % Monocytes (%) (Auto) 10 0-12 % Eosinophils (%) (Auto) 2 0-10 % Basophils (%) (Auto) 1 0-10 % Neutrophils # (Auto) 4.4 1.8-7.8 X 10^3 Lymphocytes # (Auto) 2.4 1.0-4.0 X 10^3 Monocytes # (Auto) 0.7 0.0-1.0 X 10^3 Eosinophils # (Auto) 0.2 0.0-0.3 10^3/uL Basophils # (Auto) 0.1 0.0-0.1 10^3/uL Prothrombin Time 11.9 L 12.2-14.7 SEC INR Comment 0.9 0.8-1.4 Activated Partial Thromboplast Time 24 24-35 SEC Sodium Level 142 135-145 MMOL/L Potassium Level 4.4 3.6-5.0 MMOL/L Chloride Level 101 98-107 MMOL/L Carbon Dioxide Level 28 21-32 MMOL/L Anion Gap 13 5-14 MMOL/L Blood Urea Nitrogen 13 7-18 MG/DL Creatinine 0.73 0.60-1.30 MG/DL Estimat Glomerular Filtration Rate > 60 BUN/Creatinine Ratio 18 Glucose Level 111 H 70-105 MG/DL Calcium Level 9.9 8.5-10.1 MG/DL Corrected Calcium 9.7 8.5-10.1 MG/DL Magnesium Level 2.0 1.6-2.4 MG/DL Total Bilirubin < 0.2 0.1-1.0 MG/DL Aspartate Amino Transf (AST/SGOT) 17 5-34 U/L Alanine Aminotransferase (ALT/SGPT) 17 0-55 U/L Alkaline Phosphatase 84 40-136 U/L Myoglobin 39.1 10.0-92.0 NG/ML Troponin I < 0.30 < 0.30 <0.30 NG/ML Total Protein 7.0 6.4-8.2 GM/DL Albumin 4.3 3.2-4.5 GM/DL Micro Results Microbiology 09/15/19 Influenza Types A,B Antigen (VIN) - Final, Complete My Orders Orders - WALTER,ELADIA L DO Cbc With Automated Diff (09/15/19 11:54) Magnesium (09/15/19 11:54) Chest 1 View Ap/Pa Only (09/15/19 11:54) Ekg Tracing (09/15/19 11:54) Comprehensive Metabolic Panel (09/15/19 11:54) Myoglobin Serum (09/15/19 11:54) Protime With Inr (09/15/19 11:54) Partial Thromboplastin Time (09/15/19 11:54) Monitor-Rhythm Ecg Trace Only (09/15/19 11:54) Lipid Panel (09/16/19 06:00) Ed Iv/Invasive Line Start (09/15/19 11:54) Troponin I Fs (09/15/19 11:54) Influenza A And B Antigens (09/15/19 11:55) Ondansetron Injection (Zofran Injectio (09/15/19 12:00) Pantoprazole Injection (Protonix Injecti (09/15/19 13:00) Ekg Tracing (09/15/19 13:34) Troponin I Fs (09/15/19 13:34) Medications Given in ED Current Medications Medications Dose Ordered Sig/Anatoly Route Start Time Stop Time Status Last Admin Dose Admin Ondansetron HCl 4 mg ONCE ONCE IVP 09/15/19 12:00 09/15/19 12:01 DC 09/15/19 12:13 4 MG Pantoprazole 40 mg ONCE ONCE IV 09/15/19 13:00 09/15/19 13:01 DC 09/15/19 13:06 40 MG Vital Signs/I&O 09/15/19 11:56 Temp 36.5 Pulse 88 Resp 16 B/P (MAP) 164/94 (117) Pulse Ox 99 Progress Progress Note : Time: 14:52 Progress Note Patient was symptom-free throughout his stay in the ER. Patient with no acute findings on EKG or troponin. X-ray did show a pneumonitis/pneumonia. Due to patient having symptoms consistent with influenza-like symptoms within the mild possible pneumonia I will treat him with azithromycin to cover for any atypical organisms. Also discharge him home with some Zofran. Patient to be discharged home in stable condition Initial ECG Impression Date: Sep 15, 2019 Initial ECG Impression Time: 11:49 Initial ECG Rhythm: Normal Sinus Initial ECG Intervals: Normal Initial ECG Impression: Normal Initial ECG Comparisson: No Previous ECG Available EKG : EKG Time: 14:04 Rate: 87 Rhythm: Normal Sinus Intervals: Normal ECG Comparisson: Unchanged ECG Impression: Normal Diagnostic Imaging Diagonstic Imaging: Xray Plain Films/CT/US/NM/MRI: chest Reviewed: Reviewed by Me, Reviewed/Discussed Departure Impression Primary Impression: Pneumonia Qualified Codes: J18.1 - Lobar pneumonia, unspecified organism Additional Impressions: Influenza-like symptoms Chest pain Qualified Codes: R07.9 - Chest pain, unspecified Disposition: 01 HOME, SELF-CARE Condition: Stable Departure-Patient Inst. Referrals: CHIRAG SHANE MD (PCP/Family) Primary Care Physician Patient Instructions: Chest Pain, Atypical Pneumonia (Mycoplasma and Viral) (DC) Add. Discharge Instructions: Follow-up with your primary care provider in 2-3 days for recheck of symptoms, return to the ER if worsens. I recommend follow up with a income tax consultant for further outpatient evaluation Emergency department focuses on treating and ruling out life-threatening diseases. Whenever possible, a diagnosis is given. However, most patients are given an impression based on their history, physical exam, and workup during your brief time in the ER. Information about probable diagnosis and other educational material has been provided. Please take the time to read and understand this information. It is very important that you follow up with a physician as discussed during the visit today. Failure to adhere to your follow-up instructions may lead to severe disability, injury, or so please make sure to keep your appointments or obtain one as requested. Please keep in mind the emergency department is not designed to your primary care or "family doctor" and nonurgent issues are best evaluated by an outpatient physician Scripts Ondansetron (Ondansetron Odt) 4 Mg Tab.rapdis 4 MG PO Q8H PRN for NAUSEA/VOMITING, #20 TAB Prov: ELADIA WALTER DO 09/15/19 Azithromycin (Azithromycin) 250 Mg Tablet 250 MG PO UD, #6 TAB TAKE 2 TABLETS ON DAY ONE THEN TAKE 1 TABLET DAILY FOR FOUR MORE DAYS Prov: ELADIA WALTER DO 09/15/19 ELADIA WALTER DO Sep 15, 2019 11:54
[2019-09-15] MEDS ORDERED: ONDANSETRON 4 MG/2 ML (SDV) Z0FRAN IVP ONE (12:00)
[2019-09-15 12:06] LABS: BASOPHILS % (AUTO) 1 % (0-10); EOSINOPHILS % (AUTO) 2 % (0-10); HEMATOCRIT 47 % (40-54); HEMOGLOBIN 15.4 G/DL (13.3-17.7); LYMPHOCYTES % (AUTO) 31 % (12-44); MEAN CORPUSCULAR HEMOGLOBIN 31 PG (25-34); MEAN CORPUSCULAR HGB CONC 33 G/DL (32-36); MEAN CORPUSCULAR VOLUME 93 FL (80-99); MEAN PLATELET VOLUME 9.5 FL (7.4-10.4); MONOCYTES % (AUTO) 10 % (0-12); NEUTROPHILS % (AUTO) 57 % (42-75); PLATELET COUNT 283 10^3/uL (130-400); RED CELL DISTRIBUTION WIDTH 13.2 % (10.0-14.5); WHITE BLOOD COUNT 7.8 10^3/uL (4.3-11.0)
[2019-09-15 12:07] LABS: BASOPHILS # (AUTO) 0.1 10^3/uL (0.0-0.1); EOSINOPHILS # (AUTO) 0.2 10^3/uL (0.0-0.3); LYMPHOCYTES # (AUTO) 2.4 X 10^3 (1.0-4.0); MONOCYTES # (AUTO) 0.7 X 10^3 (0.0-1.0); NEUTROPHILS # (AUTO) 4.4 X 10^3 (1.8-7.8)
[2019-09-15 12:15] LABS: INR 0.9 (0.8-1.4); PROTHROMBIN TIME PATIENT 11.9 SEC (12.2-14.7)
[2019-09-15 12:29] LABS: BUN/CREATININE RATIO 18; CALCIUM 9.9 MG/DL (8.5-10.1); CARBON DIOXIDE 28 MMOL/L (21-32); CHLORIDE 101 MMOL/L (98-107); CREATININE SERUM 0.73 MG/DL (0.60-1.30); GFR ESTIMATED > 60; GLUCOSE 111 MG/DL (70-105); POTASSIUM 4.4 MMOL/L (3.6-5.0); SODIUM 142 MMOL/L (135-145)
[2019-09-15 12:30] LABS: ALANINE AMINOTRANSFERASE 17 U/L (0-55); ALBUMIN 4.3 GM/DL (3.2-4.5); ALKALINE PHOSPHATASE 84 U/L (40-136); BILIRUBIN,TOTAL < 0.2 MG/DL (0.1-1.0)
--- NOTE | 2019-09-15 12:37 | Diagnostic Imaging Report ---
EXAM: CHEST 1 VIEW AP/PA ONLY INDICATION: Diaphoresis. Chest pain. Cough. COMPARISON: None. FINDINGS: Normal heart size and central pulmonary vascularity. Mild airspace opacity in the right medial lung base. No pleural effusion or pneumothorax. No acute osseous findings. IMPRESSION: Mild airspace opacity in the right lung base medially suspicious for pneumonitis. Dictated by: Dictated on workstation # [id number]
[2019-09-15] MEDS ORDERED: PANTOPRAZOLE 40 MG (PROTONIX) VIAL IV ONE (13:00)
[2019-09-15] MEDS ORDERED: AZIT250T12 PO (14:55)
[2019-09-15] MEDS ORDERED: ONDA4TAB11 PO (14:55)
[2019-09-15 15:05] VITALS: BP 127/84
--- OUTSIDE RECORDS SUMMARY | 2019-09-23 19:12 | XMS REPORT | Continuity of Care Document ---
Author Organization Unknown Address Unknown Phone Unavailable Allergies Active Description Code Type Severity Reaction Onset Reported/Identified Relationship to Patient Clinical Status Yes aspirin [id number] Drug Allergy Unknown N/A 07/18/2018 Yes codeine [id number] Drug Allergy Unknown N/A 07/18/2018 Medications There is no data. Problems Date Dx Coded Attending Type Code Diagnosis Diagnosed By 07/18/2018 NATIVIDAD SILVER MD, Ot F17.210 NICOTINE DEPENDENCE, CIGARETTES, UNCOMPL 07/18/2018 NATIVIDAD SILVER MD Ot J44.9 CHRONIC OBSTRUCTIVE PULMONARY DISEASE, U 07/18/2018 NATIVIDAD SILVER MD Ot K04.7 PERIAPICAL ABSCESS WITHOUT SINUS 07/18/2018 NATIVIDAD SILVER MD Ot K08.89 OTHER SPECIFIED DISORDERS OF TEETH AND S 07/18/2018 NATIVIDAD SILVER MD Ot L03.211 CELLULITIS OF FACE 07/18/2018 NATIVIDAD SILVER MD Ot Z88.5 ALLERGY STATUS TO NARCOTIC AGENT STATUS 07/18/2018 NATIVIDAD SILVER MD Ot Z88.6 ALLERGY STATUS TO ANALGESIC AGENT STATUS 07/20/2018 IRIS WEBB, ZOYA Lemus Ot K04.7 PERIAPICAL ABSCESS WITHOUT SINUS 07/22/2018 NATIVIDAD SILVER MD Ot F17.210 NICOTINE DEPENDENCE, CIGARETTES, UNCOMPL 07/22/2018 NATIVIDAD SILVER MD Ot J44.9 CHRONIC OBSTRUCTIVE PULMONARY DISEASE, U 07/22/2018 NATIVIDAD SILVER MD Ot K04.7 PERIAPICAL ABSCESS WITHOUT SINUS 07/22/2018 NATIVIDAD SILVER MD Ot K08.89 OTHER SPECIFIED DISORDERS OF TEETH AND S 07/22/2018 NATIVIDAD SILVER MD Ot L03.211 CELLULITIS OF FACE 07/22/2018 NATIVIDAD SILVER MD Ot Z88.5 ALLERGY STATUS TO NARCOTIC AGENT STATUS 07/22/2018 NATIVIDAD SILVER MD Ot Z88.6 ALLERGY STATUS TO ANALGESIC AGENT STATUS 07/23/2018 IRIS WEBB, ZOYA Lemus Ot K04.7 PERIAPICAL ABSCESS WITHOUT SINUS 01/28/2019 EDI COMBS DO Ot F17.210 NICOTINE DEPENDENCE, CIGARETTES, UNCOMPL 01/28/2019 EDI COMBS DO Ot J44.9 CHRONIC OBSTRUCTIVE PULMONARY DISEASE, U 01/28/2019 EDI COMBS DO Ot M25.472 EFFUSION, LEFT ANKLE 01/28/2019 EDI COMBS DO Ot M25.572 PAIN IN LEFT ANKLE AND JOINTS OF LEFT FO 01/28/2019 EDI COMBS DO Ot X50.1XXA OVEREXERTION FROM PROLONGED STATIC OR AW 01/28/2019 EDI COMBS DO Ot Z87.81 PERSONAL HISTORY OF (HEALED) TRAUMATIC F 01/28/2019 EDI COMBS DO Ot Z88.5 ALLERGY STATUS TO NARCOTIC AGENT STATUS 01/28/2019 EDI COMBS DO Ot Z88.6 ALLERGY STATUS TO ANALGESIC AGENT STATUS 01/30/2019 EDI COMBS DO Ot F17.210 NICOTINE DEPENDENCE, CIGARETTES, UNCOMPL 01/30/2019 EDI COMBS DO Ot J44.9 CHRONIC OBSTRUCTIVE PULMONARY DISEASE, U 01/30/2019 EDI COMBS DO Ot M25.472 EFFUSION, LEFT ANKLE 01/30/2019 EDI COMBS DO Ot M25.572 PAIN IN LEFT ANKLE AND JOINTS OF LEFT FO 01/30/2019 EDI COMBS DO Ot X50.1XXA OVEREXERTION FROM PROLONGED STATIC OR AW 01/30/2019 EDI COMBS DO Ot Z87.81 PERSONAL HISTORY OF (HEALED) TRAUMATIC F 01/30/2019 EDI COMBS DO Ot Z88.5 ALLERGY STATUS TO NARCOTIC AGENT STATUS 01/30/2019 EDI COMBS DO Ot Z88.6 ALLERGY STATUS TO ANALGESIC AGENT STATUS 05/15/2019 ANIKET RUFF DO Ot J44. 9 CHRONIC OBSTRUCTIVE PULMONARY DISEASE, U 05/15/2019 ANIKET RUFF DO Ot N13. 2 HYDRONEPHROSIS WITH RENAL AND URETERAL C 05/15/2019 ANIKET RUFF DO Ot R10. 9 UNSPECIFIED ABDOMINAL PAIN 05/15/2019 ANIKET RUFF DO Ot R93. 41 ABN RADLGC FIND ON DX IMAGING RENAL PELV 05/15/2019 ANIKET RUFF DO Ot Z88. 5 ALLERGY STATUS TO NARCOTIC AGENT STATUS 05/15/2019 ANIKET RUFF DO Ot Z88. 6 ALLERGY STATUS TO ANALGESIC AGENT STATUS 05/20/2019 ANIKET RUFF DO Ot J44. 9 CHRONIC OBSTRUCTIVE PULMONARY DISEASE, U 05/20/2019 ANIKET RUFF DO Ot N13. 2 HYDRONEPHROSIS WITH RENAL AND URETERAL C 05/20/2019 ANIKET RUFF DO Ot R10. 9 UNSPECIFIED ABDOMINAL PAIN 05/20/2019 ANIKET RUFF DO Ot R93. 41 ABN RADLGC FIND ON DX IMAGING RENAL PELV 05/20/2019 ANIKET RUFF DO Ot Z88. 5 ALLERGY STATUS TO NARCOTIC AGENT STATUS 05/20/2019 ANIKET RUFF DO Ot Z88. 6 ALLERGY STATUS TO ANALGESIC AGENT STATUS 05/26/2019 YULIANA MORA MD Ot Z01.8 18 ENCOUNTER FOR OTHER PREPROCEDURAL EXAMIN 05/27/2019 YULIANA MORA MD Ot F32.9 MAJOR DEPRESSIVE DISORDER, SINGLE EPISOD 05/27/2019 YULIANA MORA MD Ot N20.1 CALCULUS OF URETER 05/27/2019 YULIANA MORA MD Ot Z79.8 91 HOG RINGER (CURRENT) USE OF OPIATE ANALGE 05/27/2019 YULIANA MORA MD Ot Z79.8 99 OTHER HOG RINGER (CURRENT) DRUG THERAPY 05/27/2019 YULIANA MORA MD Ot Z87.8 91 PERSONAL HISTORY OF NICOTINE DEPENDENCE 05/27/2019 YULIANA MORA MD Ot Z88.5 ALLERGY STATUS TO NARCOTIC AGENT STATUS 05/27/2019 YULIANA MORA MD Ot Z88.6 ALLERGY STATUS TO ANALGESIC AGENT STATUS 05/30/2019 YULIANA MORA MD Ot F32.9 MAJOR DEPRESSIVE DISORDER, SINGLE EPISOD 05/30/2019 YULIANA MORA MD Ot N20.1 CALCULUS OF URETER 05/30/2019 YULIANA MORA MD Ot Z79.8 91 [facility] (CURRENT) USE OF OPIATE ANALGE 05/30/2019 YULIANA MORA MD Ot Z79.8 99 OTHER [facility]FP (CURRENT) DRUG THERAPY 05/30/2019 YULIANA MORA MD, Ot Z87.8 91 PERSONAL HISTORY OF NICOTINE DEPENDENCE 05/30/2019 YULIANA MORA MD Ot Z88.5 ALLERGY STATUS TO NARCOTIC AGENT STATUS 05/30/2019 YULIANA MORA MD Ot Z88.6 ALLERGY STATUS TO ANALGESIC AGENT STATUS 09/15/2019 YULIANA MORA MD Ot R10.3 2 LEFT LOWER QUADRANT PAIN Procedures There is no data. Results Test Result Range Complete blood count (CBC) with automate d white blood cell (WBC) differential - 07/18/18 09:10 Blood leukocytes automated count (number/volume) 12.0 10*3/uL 4.3-11.0 Blood erythrocytes automated count (number/volume) 4.98 10*6/uL 4.35-5.85 Venous blood hemoglobin measurement (mass/volume) 15.6 g/dL 13.3-17.7 Blood hematocrit (volume fraction) 46 % 40-54 Automated erythrocyte mean corpuscular volume 93 [ foz_us] 80-99 Automated erythrocyte mean corpuscular h emoglobin (mass per erythrocyte) 31 pg 25-34 Automated erythrocyte mean corpuscular h emoglobin concentration measurement (mass/volume) 34 g/dL 32-36 Automated erythrocyte distribution width ratio 13. 6 % 10.0- 14.5 Automated blood platelet count (count/volume) 257 10*3/uL 130-400 Automated blood platelet mean volume measurement 9.9 [foz_us] 7.4-10.4 Automated blood neutrophils/100 leukocytes 67 % 42-75 Automated blood lymphocytes/100 leukocytes 16 % 12-44 Blood monocytes/100 leukocytes 16 % 0-12 Automated blood eosinophils/100 leukocytes 1 % 0-10 Automated blood basophils/100 leukocytes 0 % 0-10 Blood neutrophils automated count (number/volume) 8.0 10*3 1.8-7.8 Blood lymphocytes automated count (number/volume) 2.0 10*3 1.0-4.0 Blood monocytes automated count (number/volume) 1. 9 10*3 0.0-1.0 Automated eosinophil count 0.1 10*3/uL 0 .0-0.3 Automated blood basophil count (count/volume) 0.0 10*3/uL 0.0-0.1 Comprehensive metabolic panel - 12/13/18 09:10 Serum or plasma sodium measurement (moles/volume) 138 mmol/L 135-145 Serum or plasma potassium measurement (moles/volume) 4.5 mmol/L 3.6-5.0 Serum or plasma chloride measurement (moles/volume) 103 mmol/L 98-107 Carbon dioxide 26 mmol/L 21-32 Serum or plasma anion gap determination (moles/volume) 9 mmol/L 5-14 Serum or plasma urea nitrogen measurement (mass/volume ) 15 mg/dL 7-18 Serum or plasma creatinine measurement (mass/volume) 0.83 mg/dL 0.60-1.30 Serum or plasma urea nitrogen/creatinine mass ratio 18 NRG Serum or plasma creatinine measurement w ith calculation of estimated glomerular filtration rate > NRG Serum or plasma glucose measurement (mass/volume) 106 mg/dL 70-105 Serum or plasma calcium measurement (mass/volume) 9.8 mg/dL 8.5-10.1 Serum or plasma total bilirubin measurement (mass/volu me) 0.4 mg/dL 0.1-1.0 Serum or plasma alkaline phosphatase alex surement (enzymatic activity/volume) 84 U/L 40-136 Serum or plasma aspartate aminotransfera se measurement (enzymatic activity/volume) 25 U/L 5-34 Serum or plasma alanine aminotransferase measurement (enzymatic activity/volume) 26 U/L 0-55 Serum or plasma protein measurement (mass/volume) 7.4 g/dL 6.4-8.2 Serum or plasma albumin measurement (mass/volume) 4.4 g/dL 3.2-4.5 CALCIUM CORRECTED 9.5 mg/dL 8.5-10.1 Serum or plasma C reactive protein measu rement (mass/volume) - 07/18/18 09:10 Serum or plasma C reactive protein measurement (mass/v olume) 4.30 mg/dL 0.00-0.50 Complete blood count (CBC) with automate d white blood cell (WBC) differential - 05/15/19 16:20 Blood leukocytes automated count (number/volume) 11.8 10*3/uL 4.3-11.0 Blood erythrocytes automated count (number/volume) 4.45 10*6/uL 4.35-5.85 Venous blood hemoglobin measurement (mass/volume) 13.9 g/dL 13.3-17.7 Blood hematocrit (volume fraction) 42 % 40-54 Automated erythrocyte mean corpuscular volume 95 [ foz_us] 80-99 Automated erythrocyte mean corpuscular h emoglobin (mass per erythrocyte) 31 pg 25-34 Automated erythrocyte mean corpuscular h emoglobin concentration measurement (mass/volume) 33 g/dL 32-36 Automated erythrocyte distribution width ratio 13. 4 % 10.0- 14.5 Automated blood platelet count (count/volume) 303 10*3/uL 130-400 Automated blood platelet mean volume measurement 9.3 [foz_us] 7.4-10.4 Automated blood neutrophils/100 leukocytes 66 % 42-75 Automated blood lymphocytes/100 leukocytes 23 % 12-44 Blood monocytes/100 leukocytes 9 % 0-12 Automated blood eosinophils/100 leukocytes 1 % 0-10 Automated blood basophils/100 leukocytes 1 % 0-10 Blood neutrophils automated count (number/volume) 7.8 10*3 1.8-7.8 Blood lymphocytes automated count (number/volume) 2.8 10*3 1.0-4.0 Blood monocytes automated count (number/volume) 1. 0 10*3 0.0-1.0 Automated eosinophil count 0.2 10*3/uL 0 .0-0.3 Automated blood basophil count (count/volume) 0.1 10*3/uL 0.0-0.1 Serum or plasma ethanol measurement (mas s/volume) - 05/15/19 16:20 Serum or plasma ethanol measurement (mass/volume) < mg/dL <10 Comprehensive metabolic panel - 05/15/19 16:20 Serum or plasma sodium measurement (moles/volume) 143 mmol/L 135-145 Serum or plasma potassium measurement (moles/volume) 4.3 mmol/L 3.6-5.0 Serum or plasma chloride measurement (moles/volume) 106 mmol/L 98-107 Carbon dioxide 27 mmol/L 21-32 Serum or plasma anion gap determination (moles/volume) 10 mmol/L 5-14 Serum or plasma urea nitrogen measurement (mass/volume ) 18 mg/dL 7-18 Serum or plasma creatinine measurement (mass/volume) 1.01 mg/dL 0.60-1.30 Serum or plasma urea nitrogen/creatinine mass ratio 18 NRG Serum or plasma creatinine measurement w ith calculation of estimated glomerular filtration rate > NRG Serum or plasma glucose measurement (mass/volume) 111 mg/dL 70-105 Serum or plasma calcium measurement (mass/volume) 9.4 mg/dL 8.5-10.1 Serum or plasma total bilirubin measurement (mass/volu me) 0.2 mg/dL 0.1-1.0 Serum or plasma alkaline phosphatase alex surement (enzymatic activity/volume) 73 U/L 40-136 Serum or plasma aspartate aminotransfera se measurement (enzymatic activity/volume) 17 U/L 5-34 Serum or plasma alanine aminotransferase measurement (enzymatic activity/volume) 11 U/L 0-55 Serum or plasma protein measurement (mass/volume) 6.7 g/dL 6.4-8.2 Serum or plasma albumin measurement (mass/volume) 4.1 g/dL 3.2-4.5 CALCIUM CORRECTED 9.3 mg/dL 8.5-10.1 Serum or plasma amylase measurement (enz ymatic activity/volume) - 05/15/19 16:20 Serum or plasma amylase measurement (enzymatic activit y/volume) 82 U/L 25-125 Lipase - 05/15/19 16:20 Lipase 65 U/L 8-78 Complete urinalysis with reflex to cultu re - 05/15/19 17:17 Urine color determination YELLOW NRG Urine clarity determination CLEAR NR G Urine pH measurement by test strip 7.0 5-9 Specific gravity of urine by test strip 1.015 1.016-1.022 Urine protein assay by test strip, semi-quantitative NEGATIVE NEGATIVE Urine glucose detection by automated test strip NE GATIVE NEGATIVE Erythrocytes detection in urine sediment by light micr oscopy 1+ NEGATIVE Urine ketones detection by automated test strip NE GATIVE NEGATIVE Urine nitrite detection by test strip NEGATIVE NEGATIVE Urine total bilirubin detection by test strip NEGA TIVE NEGATIVE Urine urobilinogen measurement by automated test strip (mass/volume) 0.2 mg/dL NORMAL Urine leukocyte esterase detection by dipstick NEG ATIVE NEGATIVE Automated urine sediment erythrocyte cou nt by microscopy (number/high power field) [HPF] NRG Automated urine sediment leukocyte count by microscopy (number/high power field) [HPF] NRG Bacteria detection in urine sediment by light microsco py NEGATIVE NRG Squamous epithelial cells detection in u rine sediment by light microscopy 0-2 NRG Crystals detection in urine sediment by light microsco py NONE NRG Casts detection in urine sediment by light microscopy NONE NRG Mucus detection in urine sediment by light microscopy NEGATIVE NRG Complete urinalysis with reflex to culture NO NRG Methicillin resistant Staphylococcus aur eus (MRSA) screening culture - 05/27/19 06:44 Methicillin resistant Staphylococcus aureus (MRSA) scr eening culture NEG NRG Complete blood count (CBC) with automate d white blood cell (WBC) differential - 09/15/19 11:52 Blood leukocytes automated count (number/volume) 7.8 10*3/uL 4.3-11.0 Blood erythrocytes automated count (number/volume) 5.05 10*6/uL 4.35-5.85 Venous blood hemoglobin measurement (mass/volume) 15.4 g/dL 13.3-17.7 Blood hematocrit (volume fraction) 47 % 40-54 Automated erythrocyte mean corpuscular volume 93 [ foz_us] 80-99 Automated erythrocyte mean corpuscular h emoglobin (mass per erythrocyte) 31 pg 25-34 Automated erythrocyte mean corpuscular h emoglobin concentration measurement (mass/volume) 33 g/dL 32-36 Automated erythrocyte distribution width ratio 13. 2 % 10.0- 14.5 Automated blood platelet count (count/volume) 283 10*3/uL 130-400 Automated blood platelet mean volume measurement 9.5 [foz_us] 7.4-10.4 Automated blood neutrophils/100 leukocytes 57 % 42-75 Automated blood lymphocytes/100 leukocytes 31 % 12-44 Blood monocytes/100 leukocytes 10 % 0-12 Automated blood eosinophils/100 leukocytes 2 % 0-10 Automated blood basophils/100 leukocytes 1 % 0-10 Blood neutrophils automated count (number/volume) 4.4 10*3 1.8-7.8 Blood lymphocytes automated count (number/volume) 2.4 10*3 1.0-4.0 Blood monocytes automated count (number/volume) 0. 7 10*3 0.0-1.0 Automated eosinophil count 0.2 10*3/uL 0 .0-0.3 Automated blood basophil count (count/volume) 0.1 10*3/uL 0.0-0.1 PT panel in platelet poor plasma by coag ulation assay - 09/15/19 11:52 Prothrombin time (PT) in platelet poor plasma by coagu lation assay 11.9 s 12.2-14.7 INR in platelet poor plasma or blood by coagulation as say 0.9 0.8-1.4 Activated partial thromboplastin time (a PTT) in platelet poor plasma bycoagulation assay - 09/15/19 11:52 Activated partial thromboplastin time (a PTT) in platelet poor plasma bycoagulation assay 24 s 24-35 Comprehensive metabolic panel - 09/15/19 11:52 Serum or plasma sodium measurement (moles/volume) 142 mmol/L 135-145 Serum or plasma potassium measurement (moles/volume) 4.4 mmol/L 3.6-5.0 Serum or plasma chloride measurement (moles/volume) 101 mmol/L 98-107 Carbon dioxide 28 mmol/L 21-32 Serum or plasma anion gap determination (moles/volume) 13 mmol/L 5-14 Serum or plasma urea nitrogen measurement (mass/volume ) 13 mg/dL 7-18 Serum or plasma creatinine measurement (mass/volume) 0.73 mg/dL 0.60-1.30 Serum or plasma urea nitrogen/creatinine mass ratio 18 NRG Serum or plasma creatinine measurement w ith calculation of estimated glomerular filtration rate > NRG Serum or plasma glucose measurement (mass/volume) 111 mg/dL 70-105 Serum or plasma calcium measurement (mass/volume) 9.9 mg/dL 8.5-10.1 Serum or plasma total bilirubin measurement (mass/volu me) < mg/dL 0.1-1.0 Serum or plasma alkaline phosphatase alex surement (enzymatic activity/volume) 84 U/L 40-136 Serum or plasma aspartate aminotransfera se measurement (enzymatic activity/volume) 17 U/L 5-34 Serum or plasma alanine aminotransferase measurement (enzymatic activity/volume) 17 U/L 0-55 Serum or plasma protein measurement (mass/volume) 7.0 g/dL 6.4-8.2 Serum or plasma albumin measurement (mass/volume) 4.3 g/dL 3.2-4.5 CALCIUM CORRECTED 9.7 mg/dL 8.5-10.1 Magnesium - 09/15/19 11:52 Magnesium 2.0 mg/dL 1.6-2.4 Myoglobin, serum - 09/15/19 11:52 Myoglobin, serum 39.1 ng/mL 10.0-92.0 TROPONIN I FS - 09/15/19 11:52 TROPONIN I FS < 0.30 <0.30 Influenza virus A and B antigen detectio n - 09/15/19 12:00 FLU RESULT NEGATIVE FOR INFLUENZA A AND B ANTIGENS BY IA NRG TROPONIN I FS - 09/15/19 14:13 TROPONIN I FS < 0.30 <0.30 Encounters ACCT No. Visit Date/Time Discharge Status Pt. Type Provider Facility Loc./Unit Complaint [id number] 03/19/2019 11:00:00 03/19/2019 23:59: 59 CLS Outpatient ACOSTA, CHIRAG Contreras [facility] [id number] 09/15/2019 11:45:00 15:07:00 DIS Emergency ELADIA WALTER DO [facility] ER FS CHEST PAIN [id number] 05/27/2019 06:25:00 10:10:00 DIS Outpatient YULIANA MORA MD [facility] SDC LEFT URETERAL STONE [id number] 05/26/2019 05:59:00 13:49:00 DIS Outpatient YULIANA MORA MD [facility] PREOP LEFT URETERAL STONE [id number] 05/19/2019 14:28:00 23:59:59 CLS Outpatient YULIANA MORA MD [facility] RAD [id number] 05/15/2019 15:53:00 18:15:00 DIS Emergency ANIKET RUFF DO [facility] ER FS FLANK PAIN [id number] 01/28/2019 22:37:00 23:15:00 DIS Emergency EDI COMBS DO [facility] ER FS LT ANKLE PAIN [id number] 07/20/2018 11:06:00 11:47:00 DIS Emergency ZOYA SIMMONS MD [facility] ER TOOTH ABSCESS [id number] 07/18/2018 08:01:00 10:53:00 DIS Emergency NATIVIDAD SILVER MD [facility] ER TOOTH PAIN;SWEL LING
== END 2019-09-15 15:07 | disposition home or self-care (01) ==
LOC: EDUNIT# 11:43 → ER FS 11:45
DX: J18.9 Pneumonia, unspecified organism (principal); R09.89 Other specified symptoms and signs involving the circulatory and respiratory systems; F41.9 Anxiety disorder, unspecified; F32.9 Major depressive disorder, single episode, unspecified; Z88.6 Allergy status to analgesic agent; Z88.5 Allergy status to narcotic agent; Z77.22 Contact with and (suspected) exposure to environmental tobacco smoke (acute) (chronic)
CPT/HCPCS: 36415; 71045; 80053; 83735; 83874; 84484; 85025; 85610; 85730; 87804; 93005; 93041; 96374; 96375

== ENCOUNTER 2020-04-03 20:05 | Emergency (ER) | payer SELFPAY ==
[~2020-04-03 20:05] MED LIST changes: +AZIT250T12 PO
[2020-04-03] MEDS ORDERED: KETOROLAC 60 MG/2 ML VIAL IM ONE (20:30)
--- NOTE | 2020-04-03 20:35 | ED Lower Extremity ---
General Chief Complaint: Lower Extremity Stated Complaint: LT ANKLE INJ Nursing Triage Note: Pt complaining of left ankle pain from an injury that happened in 2014 Nursing Sepsis Screen: No Definite Risk Source: patient History of Present Illness Date Seen by Provider: Apr 03, 2020 Time Seen by Provider: 22:15 Initial Comments Patient is a 45-year-old male with history of left ankle fracture requiring surgical fixation in 2014 resents with chronic left ankle pain due to loosening of screws within surgical site. This process has been chronic and ongoing for the past several months the patient's been evaluated by his PCP and by an orthopedic surgeon at . Denies new injury or pain complain. No other symptoms. Onset: other (several months/years) Modifying Factors: Improves With Pain Medication Allergies and Home Medications Allergies Coded Allergies: aspirin (Unverified Allergy, Unknown, 07/18/18) codeine (Unverified Allergy, Unknown, 07/18/18) Home Medications Azithromycin 250 Mg Tablet, 250 MG PO UD TAKE 2 TABLETS ON DAY ONE THEN TAKE 1 TABLET DAILY FOR FOUR MORE DAYS Prescribed by: ELADIA WALTER on 09/15/19 1455 Hydrocodone/Acetaminophen 1 Each Tablet, 1 TAB PO Q4H Prescribed by: SPEEDY MARCIAL on 05/15/191758 Ondansetron 4 Mg Tab.rapdis, 4 MG PO Q6H Prescribed by: SPEEDY MARCIAL on 05/15/191758 Ondansetron 4 Mg Tab.rapdis, 4 MG PO Q8H PRN for NAUSEA/VOMITING Prescribed by: ELADIA WALTER on 09/15/19 1455 Tamsulosin HCl 0.4 Mg Cap, 0.4 MG PO DAILY Prescribed by: SPEEDY MARCIAL on 05/15/191758 Venlafaxine HCl 150 Mg Cap.er.24h, 150 MG PO DAILY, (Reported) Patient Home Medication List Home Medication List Reviewed: Yes Review of Systems Constitutional: no symptoms reported EENTM: no symptoms reported Respiratory: no symptoms reported Cardiovascular: no symptoms reported Gastrointestinal: no symptoms reported Genitourinary: no symptoms reported Musculoskeletal: see HPI Skin: no symptoms reported Psychiatric/Neurological: No Symptoms Reported Past Ocuircb-Tefooe-Ticeid Hx Past Med/Social Hx: Reviewed Nursing Past Med/Soc Hx Patient Social History Alcohol Use: Denies Use Recreational Drug Use: No Drug of Choice: marijuana Smoking Status: Current Everyday Smoker Type Used: Cigarettes 2nd Hand Smoke Exposure: Yes Recent Foreign Travel: No Contact w/Someone Who Travel: No Recent Infectious Disease Expo: No Recent Hopitalizations: No Physical Abuse: No Sexual Abuse: No Immunizations Up To Date Tetanus Booster (TDap): Less than 5yrs PED Vaccines UTD: No Seasonal Allergies Seasonal Allergies: No Past Medical History Surgeries: Yes (ANKLE FX, R KNEE, HAND, TESTICLE TORSION ) Orthopedic, Tonsillectomy Respiratory: No COPD Currently Using CPAP: No Currently Using BIPAP: No Cardiac: No Neurological: No Sexually Transmitted Disease: No HIV/AIDS: No Genitourinary: Yes Kidney Stones Gastrointestinal: Yes (HX RELFLUX) Gastroesophageal Reflux, Hepatitis Musculoskeletal: Yes Arthritis, Chronic Back Pain Endocrine: No HEENT: No Loss of Vision: Denies Hearing Impairment: Denies Cancer: No Psychosocial: Yes Anxiety, Depression Integumentary: No Blood Disorders: No Adverse Reaction/Blood Tranf: No (HAD HAD BLOOD WITH NO REACTION) Physical Exam Vital Signs Vital Signs - First Documented 04/03/20 20:07 Temp 36.6 Pulse 116 Resp 18 B/P (MAP) 141/101 (114) Pulse Ox 100 O2 Delivery Room Air Capillary Refill : Less Than 3 Seconds Height, Weight, BMI Height: 5'6.00" Weight: 155lbs. 0oz. 70.546918to; 25.00 BMI Method:Stated General Appearance: WD/WN, no apparent distress HEENT: PERRL/EOMI, normal ENT inspection Cardiovascular: normal peripheral pulses Respiratory: lungs clear, normal breath sounds Ankles: left ankle other (partial displacement of surgical screws grossly visible on physical exam. No tenting cellulitis or joint swelling or redness) Progress/Results/Core Measures Results/Orders My Orders Orders - ROHITH ROPER DO Ketorolac Injection (Toradol Injection) (04/03/20 20:30) Vital Signs/I&O 04/03/20 20:07 Temp 36.6 Pulse 116 Resp 18 B/P (MAP) 141/101 (114) Pulse Ox 100 O2 Delivery Room Air Blood Pressure Mean: 114 Departure Communication (Admissions) This is a chronic pain complaint requiring nonemergent orthopedic management/consultation. Will defer further management PCP/orthopedic provider. Impression Primary Impression: Chronic pain of left ankle Disposition: 01 HOME, SELF-CARE Condition: Stable Departure-Patient Inst. Decision time for Depature: 20:34 Add. Discharge Instructions: Please follow care plan outlined by your PCP and orthopaedic suregon. All discharge instructions reviewed with patient and/or family. Voiced understanding. ROHITH ROPER DO Apr 03, 2020 20:35
[2020-04-03 20:38] VITALS: BP 141/101
== END 2020-04-03 20:38 | disposition home or self-care (01) ==
LOC: EDUNIT# 20:05 → ER FS 20:06
DX: M25.572 Pain in left ankle and joints of left foot (principal); F41.9 Anxiety disorder, unspecified; F32.9 Major depressive disorder, single episode, unspecified; G89.29 Other chronic pain; M54.9 Dorsalgia, unspecified; F17.210 Nicotine dependence, cigarettes, uncomplicated; Z88.5 Allergy status to narcotic agent; Z88.8 Allergy status to other drugs, medicaments and biological substances; Z79.891 Long term (current) use of opiate analgesic
CPT/HCPCS: 99282

== ENCOUNTER 2020-09-25 05:37 | Emergency (ER) | payer SELFPAY ==
[~2020-09-25] VITALS: Ht 167.7 cm; Wt 77.1 kg
[~2020-09-25 05:37] MED LIST changes: -CLIN300C11 PO; +CLIN300C12 PO
[2020-09-25 05:44] VITALS: BP 142/109
--- NOTE | 2020-09-25 06:03 | ED Lower Extremity ---
General Chief Complaint: Lower Extremity Stated Complaint: LEFT ANKLE INJURY Source: patient History of Present Illness Date Seen by Provider: Sep 25, 2020 Time Seen by Provider: 05:59 Initial Comments Patient is a 45-year-old with history of left ankle surgical repair who presents with exacerbation of left chronic ankle pain. No new injury or pain complaint. Patient reports pain localized over screw that is poking beneath the skin overlying lateral malleolus. No bruising redness warmth swelling appreciated. No other symptoms or complaints.. Onset: just prior to arrival Severity: moderate Pain/Injury Location: left ankle Method of Injury: other Modifying Factors: Improves With Other Allergies and Home Medications Allergies Coded Allergies: aspirin (Unverified Allergy, Unknown, 07/18/18) codeine (Unverified Allergy, Unknown, 07/18/18) Home Medications Azithromycin 250 Mg Tablet, 250 MG PO UD TAKE 2 TABLETS ON DAY ONE THEN TAKE 1 TABLET DAILY FOR FOUR MORE DAYS Prescribed by: ELADIA WALTER on 09/15/19 145 Hydrocodone/Acetaminophen 1 Each Tablet, 1 TAB PO Q4H Prescribed by: SPEEDY MARCIAL on 05/15/191758 Ondansetron 4 Mg Tab.rapdis, 4 MG PO Q6H Prescribed by: SPEEDY MARCIAL on 05/15/191758 Ondansetron 4 Mg Tab.rapdis, 4 MG PO Q8H PRN for NAUSEA/VOMITING Prescribed by: ELADIA WALTER on 09/15/19 1455 Tamsulosin HCl 0.4 Mg Cap, 0.4 MG PO DAILY Prescribed by: SPEEDY MARCIAL on 05/15/191758 Venlafaxine HCl 150 Mg Cap.er.24h, 150 MG PO DAILY, (Reported) Patient Home Medication List Home Medication List Reviewed: Yes Review of Systems Constitutional: see HPI EENTM: see HPI Respiratory: see HPI, cough Cardiovascular: see HPI Genitourinary: see HPI Musculoskeletal: joint pain Skin: see HPI Psychiatric/Neurological: See HPI Past [id number]-[id number] Hx Patient Social History Alcohol Use: Denies Use Drug of Choice: marijuana Smoking Status: Current Everyday Smoker Type Used: Cigars 2nd Hand Smoke Exposure: Yes Recent Hopitalizations: No Immunizations Up To Date Tetanus Booster (TDap): Less than 5yrs PED Vaccines UTD: No Seasonal Allergies Seasonal Allergies: No Past Medical History Surgeries: Yes (ANKLE FX, R KNEE, HAND, TESTICLE TORSION ) Orthopedic, Tonsillectomy Respiratory: No COPD Currently Using CPAP: No Currently Using BIPAP: No Cardiac: No Neurological: No Sexually Transmitted Disease: No HIV/AIDS: No Genitourinary: Yes Kidney Stones Gastrointestinal: Yes (HX RELFLUX) Gastroesophageal Reflux, Hepatitis Musculoskeletal: Yes Arthritis, Chronic Back Pain Endocrine: No HEENT: No Loss of Vision: Denies Hearing Impairment: Denies Cancer: No Psychosocial: Yes Anxiety, Depression Integumentary: No Blood Disorders: No Adverse Reaction/Blood Tranf: No (HAD HAD BLOOD WITH NO REACTION) Physical Exam Vital Signs Capillary Refill : Height, Weight, BMI Height: 5'6.00" Weight: 155lbs. 0oz. 70.754977hh; 25.00 BMI Method:Stated General Appearance: WD/WN Ankles: left ankle other (screw PRTODUDING beneath the skin overlying l lateral malleolus. No bruising redness warmth swelling appreciated) Neurologic/Psychiatric: no motor/sensory deficits, normal mood/affect, oriented x 3 Skin: normal color Progress/Results/Core Measures Results/Orders My Orders Orders - ROHITH ROPER DO Ankle 3 View Left (09/25/20 05:46) Departure Impression Primary Impression: Chronic ankle pain Disposition: 01 HOME, SELF-CARE Condition: Stable Departure-Patient Inst. Decision time for Depature: 06:02 Referrals: CHIRAG SHANE MD (PCP/Family) Primary Care Physician Patient Instructions: Joint Pain Add. Discharge Instructions: Please use NSAIDs, apply ice, use crutches as needed and follow-up with your or thopedic surgeon for evaluation of chronic ankle pain. All discharge instructions reviewed with patient and/or family. Voiced u nderstanding. ROHITH ROPER DO Sep 25, 2020 06:03
--- NOTE | 2020-09-25 06:20 | Diagnostic Imaging Report ---
EXAMINATION: Left ankle at 5:40 AM INDICATION: Injury, ankle pain 3 views were obtained. There are no prior studies available for comparison. There is an orthopedic plate and screw fixation device along the lateral aspect of the distal fibula. The orthopedic hardware appears to be in good position although the 3rd screw from the bottom is not fully advanced into the distal fibula. There is a suggestion of a faint fracture line still evident in this region as well. There is no acute fracture or dislocation evident. The ankle mortise is not widened and the talar dome is smooth. The soft tissues are unremarkable. IMPRESSION: 1. There are postsurgical and posttraumatic changes involving the distal fibula. The 3rd screw from the bottom is not fully advanced into the distal tibia. Clinical follow-up is recommended. 2. There is no acute bony abnormality noted. Dictated by: Dictated on workstation # [id number]
== END 2020-09-25 06:21 ==
LOC: EDUNIT# 05:37 → ER FS 05:41
DX: M25.572 Pain in left ankle and joints of left foot (principal); G89.29 Other chronic pain; M54.9 Dorsalgia, unspecified; F41.9 Anxiety disorder, unspecified; F32.9 Major depressive disorder, single episode, unspecified; F17.290 Nicotine dependence, other tobacco product, uncomplicated; Z88.5 Allergy status to narcotic agent; Z88.8 Allergy status to other drugs, medicaments and biological substances
CPT/HCPCS: 73610